=== PATIENT | male | born 1960 | race Hispanic/Latino ===

== ENCOUNTER 2017-05-23 11:23 | Outpatient (CLI) | payer OTHER ==
[2017-05-23 12:01] LABS: Bilirubin Negative (Negative); Blood, Urine Negative (Negative); Glucose, Urine (Dipstick) Negative (Negative); Ketone, Urine Negative (Negative); Nitrite Negative (Negative); Protein, Urine (Dipstick) Negative (Neg-Trace); Red Blood Cell (RBC) Count 4.95 mill/uL (4.70-6.10); White Blood Cell (WBC) Count 9.3 thou/uL (4.8-10.8)
[2017-05-23 12:03] LABS: Bacteria/HPF None Seen HPF (None Seen); Hyaline Casts/LPF 0-3 HYALINE CAST LPF (0-3 Hyaline); Squamous Epithelial 0-3 HPF (0-3); WBC/HPF 0-3 HPF (0-3)
[2017-05-23 12:09] LABS: PTT 32.6 SEC (22.9-36.1); Prothrombin Time 13.3 SEC (12.0-14.7)
[2017-05-23 12:22] LABS: Anion Gap 14 mmol/L (10-20); BUN (Urea Nitrogen) 7 mg/dL (8.4-25.7); Calc. Creatinine Clearance 0 mL/min (70-130); Calcium 9.7 mg/dL (7.8-10.44); Carbon Dioxide 26 mmol/L (22-29); Chloride 103 mmol/L (98-107); Estimated GFR-MDRD Greater than 90
== END 2017-05-23 11:24 | disposition home or self-care (01) ==
LOC: LABBT 11:23 → SJX 11:24
PROVIDERS: ATTEND Urology
DX: C67.9 Malignant neoplasm of bladder, unspecified (principal)
CPT/HCPCS: 80048; 81001; 85027; 85610; 85730; 87086; 88112; 88121; 93005; 93010

== ENCOUNTER 2017-06-01 07:23 | Day surgery (SDC) | payer OTHER ==
[2017-05-23 11:59] VITALS: BMI 25.7
[2017-06-01] MEDS ORDERED: Levofloxacin 500 mg/D5W 100 ml Premix Bag ONE (07:41)
[2017-06-01] MEDS ORDERED: Midazolam HCl 2 mg/2 ml Vial ONE (07:48)
[2017-06-01] MEDS ORDERED: Fentanyl 100 MCG/2 ML VIAL ONE (08:21)
--- NOTE | 2017-06-01 09:33 | OP ---
DATE OF PROCEDURE: 06/01/2017 SERVICE: Urology. SURGEON: Theron Green M.D. PREOPERATIVE DIAGNOSIS: Bladder cancer. POSTOPERATIVE DIAGNOSIS: Bladder cancer. PROCEDURE PERFORMED: Cystoscopy, bladder biopsy. INDICATIONS FOR PROCEDURE: Mr. Sutherland is a 56-year-old male who is well known to me for h is history of high grade T1 urothelial carcinoma. He has had multiple recurrences and is currently o n BCG therapy. He is on his 2nd induction cycle. On his last cystoscopy he had 2 suspicious areas w ithin his bladder diverticulum which worrisome for possible recurrence. His cytology was suspicious and his FISH analysis was positive. He is being brought in for bladder biopsies of these concerning lesions. All risks and benefits have been discussed and he has agreed to proceed forward. DESCRIPTION OF PROCEDURE: After identification of his armband and verification of consent, the patie nt was brought back to the operating room where he underwent general anesthesia with LMA. He was the n placed in dorsal lithotomy position and prepped and draped in usual sterile fashion. After appropr iate timeout, a lubricated 22 [place]ian rigid cystoscope was introduced per urethra into the bladder. A full cystoscopy was performed and there did not appear to be any lesions within the bladder itself o r near the bladder neck, prostatic urethra or urethra. The diverticulum contained some calcification s and two small appearing tumors with calcifications embedded in them. Both of these were plucked of f completely with cold cup biopsy forceps and a wide area fulgurated for hemostasis and destruction o f any potential cancer which may be present in the diverticulum. Upon completion, there did not appe ar to be any other suspicious areas that were concerning for urothelial carcinoma. Satisfied, the bl adder was emptied and the cystoscope withdrawn. The patient was then awakened and taken to PACU for recovery in stable condition. COMPLICATIONS: None. ESTIMATED BLOOD LOSS: Minimal. RETAINED TUBES AND DRAINS: None. SPECIMENS: Bladder biopsies from the bladder diverticulum. DISPOSITION: The patient will be discharged home and will follow up with me in approximately 1-2 wee ks for his postop check and to go over his pathology results.
[2017-06-01] MEDS ORDERED: Oxybutynin 5 MG TAB ONE (09:36)
[2017-06-01] MEDS ORDERED: Lidocaine 1% PF 5 ML VIAL ONE (17:37)
[2017-06-01] MEDS ORDERED: Dexamethasone 20 MG/5 ML VIAL ONE (17:37)
[2017-06-01] MEDS ORDERED: Ondansetron HCl/PF 4 MG/2 ML Vial ONE (17:37)
[2017-06-01] MEDS ORDERED: Propofol 200 MG/20 ML VIAL ONE (17:37)
== END 2017-06-01 11:27 | disposition home or self-care (01) ==
LOC: SDC 07:23
PROVIDERS: ATTEND Urology
PROC: 0T5B8ZZ Destruction of Bladder, Via Natural or Artificial Opening Endoscopic (ICD-10-PCS; principal; 2017-06-01)
PROC: 0TBB8ZX Excision of Bladder, Via Natural or Artificial Opening Endoscopic, Diagnostic (ICD-10-PCS; principal; 2017-06-01)
DX: N30.20 Other chronic cystitis without hematuria (principal); C67.9 Malignant neoplasm of bladder, unspecified; F17.210 Nicotine dependence, cigarettes, uncomplicated; Z98.890 Other specified postprocedural states; Z79.899 Other long term (current) drug therapy; Z86.19 Personal history of other infectious and parasitic diseases
CPT/HCPCS: 88305; J1100; J1956; J2001; J2250; J2405; J2704; J3010

== ENCOUNTER 2017-07-06 07:52 | Outpatient (CLI) | payer OTHER ==
--- NOTE | 2017-07-06 10:02 | CT ---
PRE AND POSTCONTRAST ENHANCED CT IMAGES ABDOMEN AND PELVIS: HISTORY: Patient with bladder diverticulum, bladder cancer, back pain. FINDINGS: Pre- and postcontrast-enhanced CT images of the abdomen and pelvis are obtained before and after admi nistration of IV contrast. The lung bases demonstrate a small calcified granuloma in the posterior aspect of the left lower lobe . No evidence of free intraperitoneal air is seen. The liver and spleen are unremarkable. Numerous calcified gallstones seen in the gallbladder. The p ancreas is unremarkable. Adrenal glands and kidneys are unremarkable. Again, a left-sided posterior approximately 4.2 x 3.2 cm left-sided bladder diverticulum is present unchanged since the previous e xam. No significant evidence of lymphadenopathy or mass lesion is seen. There is some thickness seen in the collateral wall. There is also a developing right-sided small bladder diverticulum diameter measuring approximately 14 mm. IMPRESSION: 1. Cholelithiasis. 2. Bilateral bladder diverticula larger on the left than on the right. 3. Some thickening and irregularity along the posterior aspect of the bladder possibly representing bladder mass or cystitis. POS: [facility]
== END 2017-07-06 07:53 | disposition home or self-care (01) ==
LOC: CT 07:52
PROVIDERS: ATTEND Urology
DX: C67.9 Malignant neoplasm of bladder, unspecified (principal); K80.20 Calculus of gallbladder without cholecystitis without obstruction; N32.3 Diverticulum of bladder
CPT/HCPCS: 74178

== ENCOUNTER 2017-08-04 09:12 | Outpatient (CLI) | payer OTHER ==
[2017-08-04 10:06] LABS: #Basophils 0.1 thou/uL (0.0-0.2); #Eosinphils 0.1 thou/uL (0.0-0.7); #Lymphocytes 3.1 thou/uL (1.20-3.40); #Monocytes 0.6 thou/uL (0.11-0.59); #Neutrophils 5.3 thou/uL (1.40-6.50); %Eosinophils 1.1 % (0.0-10.0); %Lymphocytes 33.5 % (21.0-51.0); %Monocytes 6.1 % (0.0-10.0); %Neutrophils 58.4 % (42.0-75.0); Mean Corpuscular HGB CONC 33.9 g/dL (32.0-36.0); Mean Corpuscular Hemoglobin 31.9 pg (27.0-31.0); Mean Corpuscular Volume 94.3 fl (80.0-94.0); Mean Platelet Volume 8.2 fL (7.4-10.4); Platelet Count 210 thou/uL (130-400); Red Blood Cell (RBC) Count 5.34 mill/uL (4.70-6.10); White Blood Cell (WBC) Count 9.1 thou/uL (4.8-10.8)
[2017-08-04 10:12] LABS: Prothrombin Time 13.2 SEC (12.0-14.7)
[2017-08-04 10:15] LABS: Bilirubin Negative (Negative); Blood, Urine Negative (Negative); Clarity CLEAR (Clear); Glucose, Urine (Dipstick) Negative (Negative); Leukocyte Moderate (Negative); Nitrite Negative (Negative); Protein, Urine (Dipstick) Negative (Neg-Trace); Specific Gravity, Urine 1.009 (1.002-1.036); pH, Urine 6.5 (5.0-9.0)
[2017-08-04 10:18] LABS: Bacteria/HPF None Seen HPF (None Seen); Hyaline Casts/LPF 0-3 HYALINE CAST LPF (0-3 Hyaline); Pathc Cast-AUWi Flag 0.27 (0-2.49); Squamous Epithelial 0-3 HPF (0-3); WBC/HPF 21-50 HPF (0-3)
[2017-08-04 10:26] LABS: Anion Gap 11 mmol/L (10-20); BUN (Urea Nitrogen) 6 mg/dL (8.4-25.7); Calc. Creatinine Clearance 0 mL/min (70-130); Calcium 9.6 mg/dL (7.8-10.44); Carbon Dioxide 24 mmol/L (22-29); Chloride 105 mmol/L (98-107); Estimated GFR-MDRD Greater than 90; Glucose 117 mg/dL (70-105); Potassium 4.3 mmol/L (3.5-5.1); Sodium 136 mmol/L (136-145)
--- NOTE | 2017-08-04 11:31 | RAD ---
2 VIEW CHEST: Date: 08/04/17 COMPARISON: 06/28/16. CLINICAL HISTORY: Preoperative evaluation. FINDINGS: Stable rounded hyperdensity of the central left lung base indicates granulomatous calcification. Lung s are otherwise clear. Cardiac silhouette is stable. IMPRESSION: 1. No focal consolidation. 2. Stable granulomatous calcification. POS: [facility]
--- NOTE | 2017-08-06 09:20 | EKG ---
Test Reason : Blood Pressure : / mmHG Vent. Rate : 077 BPM Atrial Rate : 077 BPM P-R Int : 136 ms QRS Dur : 074 ms QT Int : 380 ms P-R-T Axes : 032 065 041 degrees QTc Int : 430 ms Normal sinus rhythm Normal ECG When compared with ECG of 23-MAY-2017 11:26, No significant change was found Confirmed by FIONA MA ([id number]) on 08/06/2017 9:20:04 AM Referred By: RACHEAL Confirmed By:FIONA MA
== END 2017-08-04 09:13 | disposition home or self-care (01) ==
LOC: LABBT 09:12
PROVIDERS: ATTEND Orthopaedic Surgery Hand Surgery
DX: Z01.818 Encounter for other preprocedural examination (principal); M19.131 Post-traumatic osteoarthritis, right wrist; M79.2 Neuralgia and neuritis, unspecified
CPT/HCPCS: 71046; 80048; 81001; 85025; 85610; 93005; 93010

== ENCOUNTER 2017-08-08 06:05 | Day surgery (SDC) | payer OTHER ==
[2017-08-04 09:30] VITALS: BMI 25.7
[2017-08-08] MEDS ORDERED: Sodium Chloride 0.9% 10 ML ONE (06:29)
[2017-08-08] MEDS ORDERED: Thrombin 5000 UNITS/5 ML VIAL ONE (06:29)
[2017-08-08] MEDS ORDERED: Bupivacaine 0.5% 10 ML VIAL ONE ×2 (06:29→07:42)
[2017-08-08] MEDS ORDERED: Bacitracin Zinc Ointment 30 gm TUBE ONE (06:29)
[2017-08-08] MEDS ORDERED: CEFAZOLIN/Water 2 GM/20 ML SYRINGE ONE (06:39)
[2017-08-08] MEDS ORDERED: Midazolam HCl 2 mg/2 ml Vial ONE (06:50)
[2017-08-08] MEDS ORDERED: Fentanyl 100 MCG/2 ML VIAL ONE ×2 (06:50→07:14)
[2017-08-08] MEDS ORDERED: Promethazine HCl 25 MG/ML VIAL IM PRN (07:13)
[2017-08-08] MEDS ORDERED: Ropivacaine 0.2% 550 ML 550 ML NERVE BLCK SCH (07:13)
[2017-08-08] MEDS ORDERED: Zolpidem Tartrate 5 MG TAB PO PRN (07:13)
[2017-08-08] MEDS ORDERED: Ketorolac Tromethamine 30 MG/ML VIAL IVP PRN (07:13)
[2017-08-08] MEDS ORDERED: HYDROcodone/Acetaminophen 10/325 mg Tablet PO PRN ×2 (07:13)
[2017-08-08] MEDS ORDERED: traMADol HCl 50 MG TAB PO PRN ×2 (07:13)
[2017-08-08] MEDS ORDERED: Ondansetron HCl/PF 4 MG/2 ML Vial IVP PRN (07:13)
[2017-08-08] MEDS ORDERED: Fentanyl 100 MCG/2 ML VIAL IV PRN (07:14)
[2017-08-08] MEDS ORDERED: HYDROmorphone 0.5 MG/0.5 ML SYRINGE ONE (07:14)
[2017-08-08] MEDS ORDERED: Gentamicin 80 MG/2 ML VIAL ONE (10:29)
[2017-08-08] MEDS ORDERED: Propofol 200 MG/20 ML VIAL ONE (14:39)
[2017-08-08] MEDS ORDERED: Lidocaine 1% PF 5 ML VIAL ONE (14:39)
[2017-08-08] MEDS ORDERED: Ketorolac Tromethamine 30 MG/ML VIAL ONE (14:39)
[2017-08-08] MEDS ORDERED: Ondansetron HCl/PF 4 MG/2 ML Vial ONE (14:39)
[2017-08-08] MEDS ORDERED: Dexamethasone 20 MG/5 ML VIAL ONE (14:39)
[2017-08-08] MEDS ORDERED: Bupivacaine/Epinephrine 0.25% 30 ML VIAL ONE (14:56)
--- NOTE | 2017-08-09 11:17 | OP ---
PREOPERATIVE DIAGNOSIS: Right wrist SLAC stage 3 with marked changes at the capitolunate joint with lunate to the radius/radial lunate fossa was excellent with no chondral injury. Also, previous ST-T fusion. PROCEDURES PERFORMED: 1. Scaphoid excision maintained in ST-T fusion at the distal 3 mm of the scaphoid. 2. Capitolunate hamate (capitolunate hamate triquetral ) arthrodesis with major bone grafting. 3. Bone grafting for fusion of the wrist. 4. RENE supervision. 5. Tenosynovectomy extensive. COMPLICATIONS: None. TOURNIQUET TIME: 120 minutes. ESTIMATED BLOOD LOSS: Approximately 150 mL. INDICATIONS: Patient with the SLAC wrist as described above even after ST-T previous fusion. DESCRIPTION OF PROCEDURE: After successful general endotracheal anesthesia, the limb was prepped and draped. Timeout was accomplished appropriately. We then outlined a zigzag incision beginning off o f the distal radial side and proximal central side of his old scaphotrapezial trapezoid fusion. We t cristina carried through the skin and subcutaneous tissue, dissected down and noticed some of the radial n erve branches were truncated as the scar preserved. All that was still not truncated on the radial s francisca and found the superficial ulnar nerve and protected it. We did a V-shaped capsulotomy based ulna rly, following the scaphoid and then slowly removed it realizing that it would be truncated because o f the need to preserve the scaphoid trapezoid fusion. We then, noticed that the scaphoradial, scapho capitate and capitolunate joint all had at least 6% or more arthrosis, but the radiolunate fossa was excellent. For this reason, 4-corner arthrodesis was indicated. We then used a combination of a bur r and small curettes to decorticate the capitate at the lunate joint, the lunate of the capitate andrea culation, the captiohamate, hamate, and triquetrum at their articulation is maintained and all radioc arpal surfaces between the triquetrum and lunate and the wrist. We then took the wrist, the lunate a s much palmar flexion as we could, still; however, it was approximately 10 degrees of palmar flexion we finished in reduction. This was then bone grafted, held with K-wires and then we in situ fused th e four corners with a combination of a minimal amount of bone from the scaphoid and marked amount fro m cancellous chip donors. Once this was well packed and we felt that we had achieved appropriate max imal position to include sagittal plane and frontal plane, we then placed two 4.0 screws across each of the articulation of the fusion first capitolunate, second hamate triquetrum and then from a separa te ulnar based incision, preserving the superficial ulnar nerve going through the sheath of the exten sor carpal ulnaris, we then placed 2 screws, first in the triquetral lunate and the second one in the hamate to capitate. All screws had excellent purchase and from the sagittal plane without violation of the anatomical planes, and then we packed the remainder surface with further bone graft. Release d the tourniquet, and began the capsule closed with #2 Ethibond using suture in interrupted fig [id number] pattern. We had excellent closure to the radius itself. Also to the scaphoid corner wh ere the bone was found. Then, we used a 3-0 Monocryl to repair the retinaculum preserving the orientation between the third a nd fourth dorsal compartment components. Subcutaneous tissue was closed with running 3-0 Monocryl fo r the deep dermal and the skin with 4-0 nylon. We closed the separate incision first by closing the ECU sheath with 3-0 Monocryl and then 4-0 nylon for the epidermis. The patient had a block, so a bul ky dressing was applied, but only minimum of 20 mL 0.5% Marcaine. Incisional injection, no epinephri ne. Sugar tong splint was applied. The patient left the operating room without evidence of anesthet ic complication.
--- NOTE | 2017-08-10 08:52 | RAD ---
RIGHT WRIST 2 VIEWS: Date: 08/08/17 HISTORY: Open reduction and internal fixation right wrist. FINDINGS/IMPRESSION: Two spot fluoroscopic intraoperative images of the right wrist demonstrate metallic hardware and fusi on of the carpal bones. POS: [facility]
== END 2017-08-08 13:48 | disposition home or self-care (01) ==
LOC: SDC 06:05
PROVIDERS: ATTEND Orthopaedic Surgery Hand Surgery
PROC: [UNRECOGNIZED PROCEDURE] (principal; 2017-08-08)
PROC: 0PTM0ZZ Resection of Right Carpal, Open Approach (ICD-10-PCS; principal; 2017-08-08)
DX: M19.131 Post-traumatic osteoarthritis, right wrist (principal); M79.2 Neuralgia and neuritis, unspecified; F17.210 Nicotine dependence, cigarettes, uncomplicated; F32.9 Major depressive disorder, single episode, unspecified; F10.10 Alcohol abuse, uncomplicated; Z98.890 Other specified postprocedural states
CPT/HCPCS: 76001; A4216; A4306; C1713; J1100; J1170; J1580; J1885; J2001; J2250; J2405; J2704; J2795; J3010; J3490

== ENCOUNTER 2018-06-12 13:22 | Outpatient (CLI) | payer OTHER ==
[2018-06-12 13:57] LABS: Hemoglobin 15.5 g/dL (14.0-18.0); Mean Corpuscular HGB CONC 33.9 g/dL (32.0-36.0); Mean Corpuscular Hemoglobin 31.2 pg (27.0-31.0); Mean Corpuscular Volume 92.1 fL (78.0-98.0); Mean Platelet Volume 8.1 fL (7.4-10.4); Platelet Count 249 thou/uL (130-400); RBC Distribution Width 11.7 % (11.5-14.5); Red Blood Cell (RBC) Count 4.96 mill/uL (4.70-6.10); White Blood Cell (WBC) Count 8.3 thou/uL (4.8-10.8)
[2018-06-12 14:05] LABS: PTT 34.3 SEC (22.9-36.1); Prothrombin Time 13.2 SEC (12.0-14.7)
[2018-06-12 14:07] LABS: Bilirubin Small (Negative); Blood, Urine Negative (Negative); Clarity CLEAR (Clear); Glucose, Urine (Dipstick) Negative (Negative); Leukocyte Small (Negative); Nitrite Negative (Negative); Protein, Urine (Dipstick) Trace mg/dL (Neg-Trace); Specific Gravity, Urine 1.022 (1.002-1.036); pH, Urine 6.5 (5.0-9.0)
[2018-06-12 14:18] LABS: Anion Gap 14 mmol/L (10-20); BUN (Urea Nitrogen) 13 mg/dL (8.4-25.7); Calc. Creatinine Clearance 0 mL/min (70-130); Calcium 9.6 mg/dL (7.8-10.44); Carbon Dioxide 23 mmol/L (22-29); Chloride 106 mmol/L (98-107); Estimated GFR-MDRD 76; Glucose 99 mg/dL (70-105); Potassium 4.6 mmol/L (3.5-5.1); Sodium 138 mmol/L (136-145)
[2018-06-12 14:59] LABS: Bacteria/HPF Rare-Few HPF (None Seen); RBC/HPF 0-3 HPF (0-3); Squamous Epithelial 0-3 HPF (0-3); WBC/HPF 0-3 HPF (0-3)
--- NOTE | 2018-06-12 17:57 | EKG ---
Test Reason : Blood Pressure : / mmHG Vent. Rate : 080 BPM Atrial Rate : 080 BPM P-R Int : 146 ms QRS Dur : 078 ms QT Int : 352 ms P-R-T Axes : 055 069 052 degrees QTc Int : 405 ms Normal sinus rhythm Normal ECG When compared with ECG of 04-AUG-2017 09:49, No significant change was found Confirmed by FIONA MA ([id number]) on 06/12/2018 5:56:26 PM Referred By: ART Confirmed By:FIONA MA
== END 2018-06-12 13:23 | disposition home or self-care (01) ==
LOC: LABBT 13:22
PROVIDERS: ATTEND Urology
DX: Z01.818 Encounter for other preprocedural examination (principal); C68.9 Malignant neoplasm of urinary organ, unspecified; N32.3 Diverticulum of bladder; C67.9 Malignant neoplasm of bladder, unspecified
CPT/HCPCS: 80048; 81001; 85027; 85610; 85730; 87086; 93005; 93010

== ENCOUNTER 2018-06-14 07:00 | Day surgery (SDC) | payer OTHER ==
[2018-06-12 13:43] VITALS: BMI 25.1
[2018-06-14] MEDS ORDERED: Levofloxacin 500 mg/D5W 100 ml Premix Bag ONE (08:19)
[2018-06-14] MEDS ORDERED: Fentanyl 100 MCG/2 ML VIAL ONE (09:00)
--- NOTE | 2018-06-14 12:06 | OP ---
DATE OF PROCEDURE: 06/14/2018 SERVICE: Urology. PREOPERATIVE DIAGNOSIS: Bladder cancer. POSTOPERATIVE DIAGNOSIS: Bladder cancer. PROCEDURE PERFORMED: Cystoscopy with bladder biopsy. INDICATION FOR PROCEDURE: Mr. Sutherland is a 57-year-old male with a long history of high-grade T1 urothelial carcinoma. He has undergone two courses of BCG, but continues to recur. I have consistently encouraged him to pursue radical cystectomy, but he has been reluctant and has not wanted to pursue this. We have also discussed bladder sparing protocol with chemo and radiation. Unfortunately, he has a new tumor now and we are bringing him in to remove this as we continue his definitive treatment for bladder cancer. DESCRIPTION OF PROCEDURE: After identification of arm band and verification of consent, the patient was brought back to the operating room, where he underwent general anesthesia with an LMA. He was then placed in dorsal lithotomy position and prepped and draped in usual sterile fashion. After appropriate time-out, a lubricated 22-[place] Islander rigid cystoscope was introduced per urethra into the bladder. A full cystoscopy was performed, and there was no additional tumors other than the area noted within the bladder diverticulum on the left. There were some red areas next to it with calcifications, which I felt I would biopsy as well and one red patch just medial to the diverticulum inside of the bladder, which I also felt I should biopsy. The biopsies were first taken of the medial aspect to the diverticulum and this area fulgurated. We then went into the diverticulum and removed the bladder tumor via multiple biopsies out of concern for possible perforation since the bladder diverticulum wall is very thin. I did not want to risk a TURBT in this location. Therefore, cold cup biopsies were used repeatedly until the entire tumor was removed, flushed with the urothelium. I was not able to get deeper biopsy bites and there is no muscularis within the diverticulum, so muscle invasion cannot be demonstrated this location. Once all the stone was removed on the adjacent lesion as well and that area also biopsied, the entire area in conglomeration in the diverticulum was fulgurated extensively with the coag current on the Bugbee electrode. Upon completion, all the tumor specimens were removed and sent off for routine pathologic evaluation. There were no additional tumor fragments noted. No other tumors anywhere in the bladder and all cauterized sites were hemostatic without any bleeding. The bladder was emptied and cystoscope removed. The patient was then awakened, and taken to PACU for recovery in stable condition. COMPLICATIONS: None. BLOOD LOSS: Minimal. RETAINED TUBES AND DRAINS: None. SPECIMENS: Bladder biopsies from within the diverticulum and medial to the diverticulum. DISPOSITION: The patient will be discharged home and follow up with me in approximately 2 to 3 weeks for biopsy results and discussion of future plans. Job ID: [id number]
[2018-06-14] MEDS ORDERED: Lidocaine 1% PF 5 ML VIAL ONE (16:58)
[2018-06-14] MEDS ORDERED: Ondansetron PF 4 MG/2 ML Vial ONE (16:58)
[2018-06-14] MEDS ORDERED: PROPOFOL 200 MG/20 ML VIAL ONE (16:58)
[2018-06-14] MEDS ORDERED: Dexamethasone 20 MG/5 ML VIAL ONE (16:58)
== END 2018-06-14 12:40 | disposition home or self-care (01) ==
LOC: SDC 07:00
PROVIDERS: ATTEND Urology
PROC: 0TBB8ZX Excision of Bladder, Via Natural or Artificial Opening Endoscopic, Diagnostic (ICD-10-PCS; principal; 2018-06-14)
DX: C67.9 Malignant neoplasm of bladder, unspecified (principal); N30.20 Other chronic cystitis without hematuria; N32.3 Diverticulum of bladder; F32.9 Major depressive disorder, single episode, unspecified; F17.210 Nicotine dependence, cigarettes, uncomplicated; Z98.890 Other specified postprocedural states
CPT/HCPCS: 88305; C1769; J1100; J1956; J2001; J2405; J2704; J3010

== ENCOUNTER 2018-07-20 08:06 | Outpatient (CLI) | payer OTHER ==
--- NOTE | 2018-07-20 10:33 | CT ---
CT THORAX NONCONTRAST LOW DOSE LUNG CANCER SCREENING CT: DATE: 07-20-18 HISTORY: 57-year-old male with 35 year history of smoking. FINDINGS: There is a prominent calcified pulmonary granuloma at the posterior base of the left lower lobe. Othe rwise, the lungs are clear, with no suspicious pulmonary nodules, bronchiectasis, ground glass lesion s, airspace opacities, consolidation, or pulmonary edema. There is no pleural effusion or pneumothora x. No thoracic aortic aneurysm. Trachea and major bronchi are patent and clear. No cardiomegaly or pe ricardial effusion. No mediastinal lymphadenopathy. IMPRESSION: 1. Lung RADS category 1 (negative, less than 1% chance of malignancy). 2. Recommend continued annual low dose screening CT. YOLIE Watkins POS: [facility]
== END 2018-07-20 08:07 | disposition home or self-care (01) ==
LOC: CT 08:06
PROVIDERS: ATTEND Internal Medicine Hematology & Oncology
DX: F17.210 Nicotine dependence, cigarettes, uncomplicated (principal)
CPT/HCPCS: G0297

== ENCOUNTER 2019-05-17 19:44 | Inpatient (IN) | payer OTHER ==
[~2019-05-17 19:44] MED LIST: Iopamidol-370 76% 500 ML 1 ML ONE
--- NOTE | 2019-05-17 20:19 | RAD ---
XR Chest Pa Lat STANDARD History: Chest pain Comparison: Radiograph 2019 Findings: Lungs are clear. No pneumothorax. No effusion. Calcified granuloma left lung base. Impression: No acute intrathoracic abnormality.
[2019-05-17 20:32] LABS: #Basophils 0.1 thou/uL (0.0-0.2); #Eosinphils 0.2 thou/uL (0.0-0.7); #Lymphocytes 4.1 thou/uL (1.20-3.40); #Monocytes 0.6 thou/uL (0.11-0.59); #Neutrophils 4.6 thou/uL (1.40-6.50); %Basophils 0.8 % (0.0-1.0); %Eosinophils 1.7 % (0.0-10.0); %Lymphocytes 43.3 % (21.0-51.0); %Monocytes 5.8 % (0.0-10.0); %Neutrophils 48.3 % (42.0-75.0); Hemoglobin 15.7 g/dL (14.0-18.0); Mean Corpuscular HGB CONC 33.9 g/dL (32.0-36.0); Mean Corpuscular Hemoglobin 31.2 pg (27.0-31.0); Mean Corpuscular Volume 92.1 fL (78.0-98.0); Mean Platelet Volume 7.7 fL (7.4-10.4); Platelet Count 261 thou/uL (130-400); RBC Distribution Width 11.8 % (11.5-14.5); Red Blood Cell (RBC) Count 5.04 mill/uL (4.70-6.10); White Blood Cell (WBC) Count 9.5 thou/uL (4.8-10.8)
[2019-05-17 20:52] LABS: ALT (SGPT) 49 U/L (8-55); AST (SGOT) 47 U/L (5-34); Albumin 4.4 g/dL (3.5-5.0); Alkaline Phosphatase 99 U/L (40-110); Anion Gap 11 mmol/L (10-20); BUN (Urea Nitrogen) 10 mg/dL (8.4-25.7); Bilirubin, Total 0.4 mg/dL (0.2-1.2); CK (CPK) 95 U/L (30-200); Calc. Creatinine Clearance 0 mL/min (70-130); Calcium 9.6 mg/dL (7.8-10.44); Carbon Dioxide 30 mmol/L (22-29); Chloride 105 mmol/L (98-107); Estimated GFR-MDRD Greater than 90; Globulin 3.1 g/dL (2.4-3.5); Glucose 128 mg/dL (70-105); Potassium 3.9 mmol/L (3.5-5.1); Protein, Total 7.5 g/dL (6.0-8.3); Sodium 142 mmol/L (136-145)
[2019-05-17] MEDS ORDERED: Aspirin Chewable 81 MG TAB ONE (21:57)
--- NOTE | 2019-05-17 23:02 | CT ---
CTA Angio Chest W WO Con History: Chest pain Comparison: Chest radiograph same day Findings: CT angiogram chest performed after the intravenous administration of contrast. 3-D renderin g provided. No pulmonary emboli. No pericardial effusion. Calcified hilar lymph nodes. Calcified left lower lobe granuloma. No pneumothorax. No effusion. No consolidation. The ascending aorta measures up to 3 9 cm. No thoracic spine compression fracture. Moderate degenerative changes. Upper abdomen is unremarkable. No acute displaced rib fracture. Impression: No pulmonary embolism or acute intrathoracic abnormality.
[2019-05-18 00:10] LABS: Troponin I Less than 0.010 ng/mL (< 0.028)
[2019-05-18] MEDS ORDERED: Acetaminophen 325 MG TAB PO PRN (01:05)
[2019-05-18] MEDS ORDERED: Nitroglycerin 0.4 MG TAB (25 Tab Bottle) PO PRN (01:05)
[2019-05-18] MEDS ORDERED: Ondansetron PF 4 MG/2 ML Vial IVP PRN (01:05)
[2019-05-18] MEDS ORDERED: HYDROcodone/Acetaminophen 5/325 mg Tablet PO PRN (01:05)
[2019-05-18 01:13] VITALS: BMI 24.7
[2019-05-18] MEDS ORDERED: Pantoprazole 40 MG VIAL IVP SCH (01:30)
[2019-05-18] MEDS ORDERED: Sodium Chloride 0.9% 1,000 ML IV SCH (01:30)
[2019-05-18] MEDS ORDERED: Famotidine 20 MG TAB PO SCH (01:30)
[2019-05-18] MEDS: Nicotine 21 MG PATCH TD SCH ×2 (01:33→19:16)
[2019-05-18 02:44] LABS: Troponin I Less than 0.010 ng/mL (< 0.028)
--- NOTE | 2019-05-18 03:03 | HP ---
PRESENTING COMPLAINT: Substernal chest pain. HISTORY OF PRESENT ILLNESS: Mr. Ena Ramos is a 58-year-old male with past medical history of bladder cancer, treated with ablation two years ago on a scheduled followup cystoscopy; history of GERD, who takes his Protonix as needed and developed substernal chest pain while walking on the roof with a friend today. Chest pain, he rates the chest pain as sharp and nonradiating, peaked at 4/10. Pain initially improved, after patient had actually dinner, pain became persistent, hence presented to ED. Pain did not change with aspirin given. He describes pain at about 2 to 3/10. He denies any shortness of breath or dizziness. He admits to transient palpitation two days ago while watching TV. He denies any history of exertional chest pain or shortness of breath. There is no family history of any coronary artery disease. PAST MEDICAL HISTORY: Significant for bladder cancer and GERD. SOCIAL HISTORY: Patient admits to one pack per day tobacco use. Occasional alcohol use. No history of illicit drug use. FAMILY HISTORY: No history of coronary artery disease or CVA. ALLERGIES: NO KNOWN DRUG ALLERGIES. HOME MEDICATIONS: Include: 1. Hydrocodone as needed daily for back pain. 2. Protonix, which he takes once in a while for intermittent gastric burning. REVIEW OF SYSTEMS: All systems review x14 were negative. PHYSICAL EXAMINATION: VITAL SIGNS: Current vitals; blood pressure of 123/61; pulse of 63; O2 saturation is 95 on room air; and temp, afebrile. GENERAL: Average built, middle-aged male, not in any distress. HEENT: Head is atraumatic, normocephalic. Pupils equal, reactive to light. Extraocular motor movement intact. NECK: No JVD. No carotid bruit. RESPIRATORY: Good air entry bilaterally. No crepitation. CARDIOVASCULAR: S1, S2. No reproducible chest wall tenderness, but notable tenderness in the epigastric substernal margin. ABDOMEN: Tenderness as noted in the epigastric margin. No guarding. Bowel sounds positive in all four quadrants. EXTREMITIES: No calf tenderness. No pedal edema. NEUROLOGIC: Patient is alert, oriented. Cranial nerves 2-12 grossly intact. LABORATORY DATA: EKG showed normal sinus rhythm. No ST-segment changes. WBC 9.5, platelet 261, and hemoglobin 15. Sodium 142, potassium 3.9, bicarb 30, BUN 10, and creatinine 0.8. AST and alkaline phosphatase normal. Troponin 0.016. IMAGING: Chest x-ray shows no acute intrathoracic abnormality. IMPRESSION: 1. Atypical chest pain. 2. Presumed gastritis. 3. Chronic tobacco use. PLAN: We will admit patient to observation on telemetry unit. We do serial set of cardiac enzymes. We will obtain CTA to rule out possibility of occult pulmonary embolism. We will give IV Protonix 40 mg x1, start now and start patient on Pepcid b.i.d. Need for adherence with Protonix discussed. If the chest pain seems most consistent with gastritis, may follow to rule out cardiac enzymes. We will include nicotine patch for tobacco use. Tobacco cessation advised. Patient is a full code. We will do subcutaneous Lovenox for DVT prophylaxis. Total time spent evaluation of patient and discussion greater than 60 minutes. Job ID: [id number]
[2019-05-18 06:21] LABS: Band 1 % (5-11); Eosinophils 2 % (0-10); Hemoglobin 14.3 g/dL (14.0-18.0); Lymphocytes 42 % (21-51); MDiff Complete? YES; Mean Corpuscular HGB CONC 33.8 g/dL (32.0-36.0); Mean Corpuscular Hemoglobin 31.2 pg (27.0-31.0); Mean Corpuscular Volume 92.4 fL (78.0-98.0); Mean Platelet Volume 8.2 fL (7.4-10.4); Monocytes 11 % (0-10); Neutrophil 41 % (42-75); Platelet Count 240 thou/uL (130-400); RBC Distribution Width 11.6 % (11.5-14.5); Reactive Lymphocytes 3 % (0-10); Red Blood Cell (RBC) Count 4.58 mill/uL (4.70-6.10); White Blood Cell (WBC) Count 8.8 thou/uL (4.8-10.8)
[2019-05-18 06:25] LABS: Anion Gap 9 mmol/L (10-20); BUN (Urea Nitrogen) 9 mg/dL (8.4-25.7); Calc. Creatinine Clearance 119 mL/min (70-130); Calcium 8.9 mg/dL (7.8-10.44); Carbon Dioxide 27 mmol/L (22-29); Cardiac Risk 2.4 (Less than 4.5); Chloride 109 mmol/L (98-107); Cholesterol 73 mg/dl (< 200 Desired); Estimated GFR-MDRD Greater than 90; Glucose 112 mg/dL (70-105); HDL Cholesterol 30 mg/dL (>60 Neg Risk); LDL Cholesterol, Calculated 12 mg/dL; Sodium 141 mmol/L (136-145); Triglycerides 156 mg/dL (Less than 150)
[2019-05-18] MEDS: Famotidine 20 MG TAB PO SCH ×2 (08:32→19:15)
[2019-05-18] MEDS: Aspirin 325 mg Enteric Coated Tablet PO SCH (08:32)
[2019-05-18] MEDS: Enoxaparin Sodium 40 MG/0.4 ML SYRINGE SC SCH (08:32)
[2019-05-18] MEDS ORDERED: FLU VACC QS2019-20(6MOS UP)/PF 60 MCG/0.5 ML SYRINGE IM ONE (09:00)
--- NOTE | 2019-05-18 19:29 | PDOC.HOSPP ---
- Subjective Encounter Date: 05/18/19 Encounter Time: 19:00 Subjective: Patient still reporting burning chest pain, at rest and on exertion. Occurred yesterday initially after activity. States his chest pain attacks last few minutes then go away on its own. Denies shortness of breath, clamminess or change in skin color with this. FEels diff than GERD. Unable to state whether protonix helps. Reports history of bleeding ulcer few years ago, was not rechecked. Stress test done today and pending. - Objective Vital Signs & Weight: Vital Signs (12 hours) Temp Pulse Resp BP BP Pulse Ox 05/18/19 16:27 97.9 F 65 16 126/78 99 05/18/19 11:26 97.8 F 71 16 132/81 97 05/18/19 08:26 98.3 F 67 16 131/82 96 Weight Weight 177 lb 4.8 oz I&O: 05/17/19 05/18/19 05/19/19 06:59 06:59 06:59 Intake Total 479 615 Balance 479 615 Result Diagrams: 05/18/19 05:33 05/18/19 05:33 Additional Labs: Accuchecks 05/18/19 10:44 POC Glucose 123 H Hospitalist ROS - Review of Systems Constitutional: denies: fever, chills Cardiovascular: reports: chest pain. denies: palpitations, orthopnea - Medication Medications: Active Medications Generic Name Dose Route Start Last Admin Trade Name Freq PRN Reason Stop Dose Admin Aspirin 325 mg 05/18/19 09:00 05/18/19 08:32 Ecotrin PO 325 mg DAILY PATRICK Administration Enoxaparin Sodium 40 mg 05/18/19 09:00 05/18/19 08:32 Lovenox SC 40 mg 0900 PATRICK Administration Famotidine 20 mg 05/18/19 09:00 05/18/19 19:15 Pepcid PO 20 mg BID PATRICK Administration Nicotine 21 mg 05/18/19 02:00 05/18/19 19:16 Nicoderm Patch TD 21 mg Q24HR PATRICK Administration Sodium Chloride 10 ml 05/18/19 01:42 05/18/19 19:15 Flush - Normal Saline IVF 10 ml PRN PRN Administration Saline Flush - Exam General Appearance: NAD, awake alert Eye: PERRL, anicteric sclera ENT: normocephalic atraumatic, no oropharyngeal lesions Neck: supple, symmetric, no JVD, no thyromegaly Heart: RRR, no murmur, no gallops, no rubs Respiratory: CTAB, no wheezes, no rales, no ronchi Gastrointestinal: soft, non-tender, non-distended, normal bowel sounds Extremities: no cyanosis, no clubbing, no edema Skin: normal turgor, no lesions, no rashes Neurological: cranial nerve grossly intact, normal sensation to touch, no focal deficits, no new deficit Musculoskeletal: normal tone, normal strength Hosp A/P - Plan Stress test: prelim pending nuclear negative 45 year old man with chest pain that started after helping his friend with outdoor activites. Currently occurs at rest and on exertion, resolves after few minutes Chest pain - possibly gastritis from ulcer versus CAD - continue IV protonix - stress test results pending. If negative, will consider GI consult tomorrow for consideration of EGD Tobacco abuse - nicotine patch Hepatitis C - not getting treatment until he is off buproprion Depression - continue buproprion
[2019-05-19 05:23] LABS: Hemoglobin 15.4 g/dL (14.0-18.0); Mean Corpuscular HGB CONC 33.7 g/dL (32.0-36.0); Mean Corpuscular Hemoglobin 31.4 pg (27.0-31.0); Mean Corpuscular Volume 93.3 fL (78.0-98.0); Mean Platelet Volume 8.1 fL (7.4-10.4); Platelet Count 233 thou/uL (130-400); RBC Distribution Width 11.7 % (11.5-14.5); Red Blood Cell (RBC) Count 4.91 mill/uL (4.70-6.10); White Blood Cell (WBC) Count 9.7 thou/uL (4.8-10.8)
[2019-05-19 05:41] LABS: Anion Gap 10 mmol/L (10-20); BUN (Urea Nitrogen) 7 mg/dL (8.4-25.7); Calc. Creatinine Clearance 114 mL/min (70-130); Calcium 9.4 mg/dL (7.8-10.44); Carbon Dioxide 27 mmol/L (22-29); Chloride 106 mmol/L (98-107); Estimated GFR-MDRD Greater than 90; Glucose 112 mg/dL (70-105); Potassium 4.4 mmol/L (3.5-5.1); Sodium 139 mmol/L (136-145)
[2019-05-19 07:59] VITALS: BP 120/75; TEMP 97.6
[2019-05-19] MEDS: Enoxaparin Sodium 40 MG/0.4 ML SYRINGE SC SCH (08:55)
[2019-05-19] MEDS: Famotidine 20 MG TAB PO SCH (08:55)
[2019-05-19] MEDS: Aspirin 325 mg Enteric Coated Tablet PO SCH (08:55)
--- NOTE | 2019-05-20 14:23 | DIS ---
DATE OF ADMISSION: 05/18/2019 DATE OF DISCHARGE: 05/19/2019 DISCHARGE DIAGNOSIS: Chest pain, most likely secondary to gastritis versus gastroesophageal reflux disease, history of peptic ulcer in the past. SECONDARY DISCHARGE DIAGNOSES: Tobacco abuse, hepatitis C, and depression. CONSULTATIONS: None. PROCEDURES: Exercise stress test/nuclear stress test. BRIEF HISTORY OF PRESENT ILLNESS: This is a 58-year-old male with a past medical history of hepatitis C, bladder cancer, GERD, who presented to the emergency room with chest pain while the patient was walking on the roof with a friend. The patient states that after he ate dinner, his pain became persistent, therefore, he presented to the ED. He had no relief with aspirin. The patient was admitted to observation on the telemetry room unit to rule out ACS. The patient had a chest x-ray in the ER, which showed no acute abnormality and had a CTA of his chest, which showed no PE. Chest pain, most likely secondary to GERD/gastritis: The patient underwent serial troponin monitoring. His troponins were negative x3. His EKG showed normal sinus rhythm with no ST-segment changes. The patient's labs were unremarkable except for a slightly elevated triglyceride of 156. The patient was started on aspirin 325 mg daily and was also started on famotidine 20 mg p.o. b.i.d. He had a nuclear stress test was ordered which showed no evidence of ischemia, but a slightly reduced EF of 51%. On 05/19, the patient states that his chest pain had resolved and he reported no episodes of chest pain on exertion. He does have a history of a bleeding ulcer in the past a few years ago, therefore aspirin was discontinued on discharge. He has not had a follow up endoscopy to assess resolution of ulcer. He was discharged on protonix 40 mg daily, famotidine daily prn and tums over the counter. He should follow up with his GI doctor as an outpatient to consider a repeat endoscopy to see if his ulcer is still present or has resolved. I also advised that the patient completely abstain from alcohol and stop smoking, he does report drinking a significant amount. He states he will have his friend over when he gets the urge to drink. He will follow up with PCP in a week. Hepatitis C: The patient has a GI doctor that he follows up with an outpatient. Currently, he is not on treatment. Depression: Continue bupropion. Tobacco abuse: The patient does not want a nicotine patch due to cost. He did not tolerate nicotine gum due to dental problems. History of bladder cancer: The patient is following up as an outpatient. DISCHARGE PHYSICAL EXAMINATION: VITAL SIGNS: Temperature 97.6, heart rate 67, respiratory rate 14, O2 saturation 99% on room air, and blood pressure 120/75. GENERAL: The patient is alert, awake, and oriented x3. CVS: Regular rate and rhythm with no murmurs, rubs, or gallops. LUNGS: Clear to auscultation bilaterally. ABDOMEN: Positive bowel sounds, soft, nontender, and nondistended. EXTREMITIES: No edema. PERTINENT LABORATORY DATA: CBC, 05/19: Normal with hemoglobin of 15.4. BMP, 05/19: Normal except for slightly elevated blood sugar of 112. Troponin I: Less than 0.01 x3. LFTs: AST slightly elevated at 47, ALT 49, alkaline phosphatase 99. The patient's AST is chronically elevated. He does have a history of hepatitis C. Lipid panel: Triglyceride is 156, cholesterol 73, LDL 12, and HDL 30. PERTINENT IMAGING STUDIES: CTA thorax, 05/17: Shows no PE. Calcified hilar lymph nodes. Calcified left lower lobe granuloma. Chest x-ray, 05/17: No acute disease. Nuclear stress test: No scar or ischemia. Slightly decreased EF of 51%. DISCHARGE CONDITION: Stable. DIET: The patient was advised to abstain from alcohol, fatty foods, spicy foods , excessive amounts of chocolate. He was advised to wait 2 to 3 hours before lying down after he eats a meal. DISCHARGE MEDICATIONS: 1. Bupropion 150 mg p.o. b.i.d. 2. Famotidine 20 mg p.o. daily. 3. [place] 10 mg/325 mg tablet 1 to 2 tablets p.o. q.4 hours p.r.n. 4. Protonix 40 mg p.o. daily. DISCHARGE INSTRUCTIONS: The patient should follow up with his PCP in a week. He should consider followup testing of his LFTs and his hypertriglyceridemia as well as his hyperglycemia. The patient was advised to come back to the ER if he has any hematemesis or black stools or dizziness or lightheadedness. The patient should follow up with Dr. Wei in a week to consider repeat endoscopy. The patient is discharged without aspirin given history of bleeding ulcer in the past and negative stress test. The patient should also follow up of left lower lobe granuloma and hilar lymph nodes and consider followup monitoring of his ascending aorta, which is 3.9 cm in size. Job ID: [id number] [facility]
--- NOTE | 2019-05-21 07:25 | NM ---
NM Cardiac Stress W EF WF History: Chest pain Comparison: None. Findings: Stress and rest performed after the intravenous administration of 27 and 9.7 mCi technetium 99m sestamibi was symmetric, respectively. Adequate left ventricular uptake of radiotracer. No scar or ischemia. Calculated ejection fraction of 51%. Impression: No scar or ischemia. Slightly decreased ejection fraction of 51%.
== END 2019-05-19 11:10 | disposition home or self-care (01) | DRG 392 ==
LOC: ERS 19:44 → 2SW 05-18 00:54 → OBSVTOIN 05-18 00:54
PROVIDERS: ADMIT Internal Medicine; ATTEND Internal Medicine
DX: K29.70 Gastritis, unspecified, without bleeding (principal); K21.9 Gastro-esophageal reflux disease without esophagitis; K27.9 Peptic ulcer, site unspecified, unspecified as acute or chronic, without hemorrhage or perforation; F32.9 Major depressive disorder, single episode, unspecified; F17.200 Nicotine dependence, unspecified, uncomplicated; B19.20 Unspecified viral hepatitis C without hepatic coma; Z85.51 Personal history of malignant neoplasm of bladder
CPT/HCPCS: 36415; 36416; 71046; 71275; 78452; 80048; 80053; 80061; 82550; 84484; 85007; 85025; 85027; 90471; 90686; 90732; 93005; 93017; A9500; C9113; G0008; G0009; J1650; Q9967

== ENCOUNTER 2020-03-05 10:30 | Outpatient (CLI) | payer OTHER ==
--- NOTE | 2020-03-05 11:21 | CT ---
Exam: Abdomen CT with and without contrast Pelvic CT with and without contrast HISTORY: Bladder neoplasm. COMPARISON: 07/06/2017. TECHNIQUE: Abdomen and pelvic CT is performed with and without contrast following urogram protocol. C oronal reformatted images are submitted for interpretation. FINDINGS: Lung bases: Calcified granuloma in the left lower lobe, measuring 1.2 cm. Heart: Normal heart size. No significant pericardial effusion. Aorta: Normal caliber. No periaortic fat stranding. Liver: 0.8 cm hypodensity in segment 8 of the liver. Lesion is too small to characterize but is stati stically favored to be a cyst. No enhancing masses in the liver. Spleen: Appropriate enhancement. Pancreas: Appropriate enhancement. Adrenal glands: Symmetric enhancement. Lymph nodes: No gastrohepatic, retrocrural or periportal lymphadenopathy. Portal vein: Patent. Gallbladder: There is evidence of cholelithiasis. There is mild dilatation of the common bile duct an d central intrahepatic biliary system. Kidneys: Noncontrast: No evidence of nephrolithiasis or perinephric fat stranding. Contrast: Symmetric enhancement of the kidneys. No evidence of enhancing masses in either renal paren chyma. Delayed: Symmetric excretion into a decompressed intrarenal collecting system. No calyceal dilatation or filling defects. Contrast opacifies the majority of the left and right ureter. There is no evidence of ureteral dilatation or periureteral fat stranding. Mesentery: No mass, nephropathy, free air or free fluid. Alimentary canal: Limited evaluation due to lack of oral contrast administration. No evidence of damion l obstruction. The ileocecal junction is normal. Normal caliber appendix. Scattered fecal material in a nondistended/nondilated colon. CT PELVIS: Reproductive organs and pelvis: Prostate gland is grossly unremarkable. Urinary bladder: There is slight mucosal prominence of the anterior urinary bladder. Stable small div erticulum on the right aspect of the urinary bladder. There is a larger diverticulum along the posterior left aspect of the urinary bladder. Diverticulum is where the left ureter inserts. Previous ly noted hyperdensities in the diverticulum are not evident. No definite filling defects are appreciated on the postcontrast images. No lytic or blastic lesions in the osseous structures. IMPRESSION: 1. Redemonstration of two bladder diverticula. There is slight mucosal prominence involving the anter ior wall of the urinary bladder. Obvious filling defects are not appreciated. Cystoscopy if clinically warranted. 2. No evidence of obstructive uropathy. 3. Cholelithiasis without evidence of cholecystitis. However, there is mild dilatation of the common bile duct, measuring 0.9 cm. There is also mild central intrahepatic biliary dilatation. Nonemergent ERCP if clinically warranted. CODE T Transcribed Date/Time: 03/05/2020 11:33 AM
== END 2020-03-05 10:31 | disposition home or self-care (01) ==
LOC: BICCT 10:30
PROVIDERS: ATTEND Urology
DX: C67.9 Malignant neoplasm of bladder, unspecified (principal); N32.3 Diverticulum of bladder; K80.20 Calculus of gallbladder without cholecystitis without obstruction
CPT/HCPCS: 74178

== ENCOUNTER 2020-10-21 13:04 | Outpatient (CLI) | payer OTHER ==
[~2020-10-21 13:04] MED LIST changes: +Iopamidol 370 76% 100 ML VIAL ONE; -Iopamidol-370 76% 500 ML 1 ML ONE
== END 2020-10-21 13:05 | disposition home or self-care (01) ==
LOC: BICCT 13:04
PROVIDERS: ATTEND Urology
DX: C67.9 Malignant neoplasm of bladder, unspecified (principal); K80.20 Calculus of gallbladder without cholecystitis without obstruction; N32.3 Diverticulum of bladder
CPT/HCPCS: 74178; Q9967

== ENCOUNTER 2021-05-05 14:15 | Outpatient (CLI) | payer OTHER ==
[2021-05-05 15:24] LABS: Hemoglobin 15.1 g/dL (13.5-17.5); Mean Corpuscular HGB CONC 34.5 g/dL (32.0-36.0); Mean Corpuscular Hemoglobin 30.3 pg (27.0-33.0); Mean Corpuscular Volume 87.8 fl (81.2-95.1); Mean Platelet Volume 10.2 fl (7.4-10.4); Platelet Count 241 10x3/uL (150-450); RBC Distribution Width 13.2 % (11.5-14.5); Red Blood Cell (RBC) Count 4.99 10x6/uL (4.32-5.72); White Blood Cell (WBC) Count 9.2 10x3/uL (3.5-10.5)
[2021-05-05 15:40] LABS: PTT 28.4 sec (22.0-33.0); Prothrombin Time 10.9 sec (9.5-12.1)
[2021-05-05 15:45] LABS: Anion Gap 15 mmol/L (10-20); BUN (Urea Nitrogen) 8 mg/dL (8.4-25.7); Calc. Creatinine Clearance 0 mL/min (70-130); Calcium 9.2 mg/dL (7.8-10.44); Carbon Dioxide 24 mmol/L (22-29); Chloride 106 mmol/L (98-107); Glucose 185 mg/dL (70-105); Potassium 3.8 mmol/L (3.5-5.1); Sodium 141 mmol/L (136-145)
[2021-05-05 15:51] LABS: Bilirubin Neg (Negative); Blood, Urine Negative (Negative); Clarity Clear (Clear); Glucose, Urine (Dipstick) Normal (Negative); Ketone, Urine Negative (Negative); Leukocyte 25 (Negative); Nitrite Negative (Negative); Protein, Urine (Dipstick) Negative (Neg-Trace); pH, Urine 6.5 (5.0-9.0)
[2021-05-05 16:39] LABS: Bacteria/HPF None Seen HPF (None Seen); RBC/HPF None Seen HPF (0-3); Squamous Epithelial 0-3 HPF (0-3); WBC/HPF None Seen HPF (0-3)
[2021-05-06 07:35] LABS: SARS-CoV-2 PCR by NAA Not Detected (NotDetected)
== END 2021-05-05 14:16 | disposition home or self-care (01) ==
LOC: LABBT 14:15
PROVIDERS: ATTEND Urology
DX: Z01.818 Encounter for other preprocedural examination (principal); C67.9 Malignant neoplasm of bladder, unspecified; B19.20 Unspecified viral hepatitis C without hepatic coma; N32.3 Diverticulum of bladder; F10.10 Alcohol abuse, uncomplicated; F33.1 Major depressive disorder, recurrent, moderate; N52.01 Erectile dysfunction due to arterial insufficiency; Z72.0 Tobacco use; Z20.822 Contact with and (suspected) exposure to COVID-19
CPT/HCPCS: 80048; 81001; 85027; 85610; 85730; 87086; 93005; 93010; U0003; U0005

== ENCOUNTER 2021-05-06 06:51 | Day surgery (SDC) | payer OTHER ==
[2021-05-05 10:08] VITALS: BMI 25.8
[2021-05-06] MEDS ORDERED: B & O ONE (07:17)
[2021-05-06] MEDS ORDERED: Levofloxacin 500 mg/D5W 100 ml Premix Bag ONE (07:42)
[2021-05-06] MEDS ORDERED: Fentanyl 100 MCG/2 ML VIAL ONE (07:44)
[2021-05-06] MEDS ORDERED: Dexamethasone 20 MG/5 ML VIAL ONE (07:49)
[2021-05-06] MEDS ORDERED: Lidocaine 1% PF 5 ML VIAL ONE (07:49)
[2021-05-06] MEDS ORDERED: Ondansetron PF 4 MG/2 ML Vial ONE (07:49)
[2021-05-06] MEDS ORDERED: PROPOFOL 200 MG/20 ML VIAL ONE (07:49)
== END 2021-05-06 10:40 | disposition home or self-care (01) ==
LOC: SDC 06:51
PROVIDERS: ATTEND Urology
PROC: 0TBB8ZX Excision of Bladder, Via Natural or Artificial Opening Endoscopic, Diagnostic (ICD-10-PCS; principal; 2021-05-06)
DX: C67.9 Malignant neoplasm of bladder, unspecified (principal); B19.20 Unspecified viral hepatitis C without hepatic coma; F17.210 Nicotine dependence, cigarettes, uncomplicated; N32.3 Diverticulum of bladder; F10.10 Alcohol abuse, uncomplicated; F33.1 Major depressive disorder, recurrent, moderate; N52.01 Erectile dysfunction due to arterial insufficiency; Z86.15 Personal history of latent tuberculosis infection; Z79.899 Other long term (current) drug therapy; Z20.822 Contact with and (suspected) exposure to COVID-19
CPT/HCPCS: 80048; 81001; 85027; 85610; 85730; 87086; 88305; 93005; 93010; J1100; J1956; J2405; J2704; J3010; U0003; U0005

== ENCOUNTER 2021-09-30 09:10 | Outpatient (CLI) | payer OTHER | END 2021-09-30 09:11 | disposition home or self-care (01) | LOC: BICCT 09:10 | PROVIDERS: ATTEND Urology | DX: C67.9 Malignant neoplasm of bladder, unspecified (principal); N13.4 Hydroureter | CPT/HCPCS: 74178 ==

== ENCOUNTER 2021-10-21 11:11 | Outpatient (CLI) | payer OTHER ==
[~2021-10-21 11:11] MED LIST changes: +Furosemide 40 MG/4 ML VIAL ONE; -Iopamidol 370 76% 100 ML VIAL ONE
== END 2021-10-21 11:12 | disposition home or self-care (01) ==
LOC: NM 11:11
PROVIDERS: ATTEND Urology
DX: N13.30 Unspecified hydronephrosis (principal)
CPT/HCPCS: 78708; A4641; A9562; J1940

== ENCOUNTER 2022-01-10 11:43 | Outpatient (CLI) | payer OTHER ==
[2022-01-10 12:55] LABS: Bilirubin Neg (Negative); Blood, Urine Negative (Negative); Clarity Clear (Clear); Glucose, Urine (Dipstick) Normal (Negative); Ketone, Urine Negative (Negative); Leukocyte Negative (Negative); Nitrite Negative (Negative); Protein, Urine (Dipstick) Negative (Neg-Trace)
[2022-01-10 13:10] LABS: Mean Corpuscular Hemoglobin 31.5 pg (27.0-33.0); Mean Corpuscular Volume 89.9 fl (81.2-95.1); Mean Platelet Volume 11.1 fl (7.4-10.4); Platelet Count 257 10x3/uL (150-450); RBC Distribution Width 12.7 % (11.5-14.5); Red Blood Cell (RBC) Count 4.76 10x6/uL (4.32-5.72); White Blood Cell (WBC) Count 9.2 10x3/uL (3.5-10.5)
[2022-01-10 13:20] LABS: INR-International Normal Ratio 0.9; PTT 28.7 sec (22.0-33.0); Prothrombin Time 10.3 sec (9.5-12.1)
[2022-01-10 13:22] LABS: Anion Gap 15 mmol/L (10-20); BUN (Urea Nitrogen) 10 mg/dL (8.4-25.7); Calc. Creatinine Clearance 0 mL/min (70-130); Calcium 9.5 mg/dL (7.8-10.44); Carbon Dioxide 25 mmol/L (22-29); Chloride 106 mmol/L (98-107); Estimated GFR 98; Glucose 115 mg/dL (70-105); Potassium 4.5 mmol/L (3.5-5.1); Sodium 141 mmol/L (136-145)
[2022-01-10 13:48] LABS: Bacteria/HPF 2+ HPF (None Seen); RBC/HPF 0-3 HPF (0-3); Squamous Epithelial 0-3 HPF (0-3)
[2022-01-10 13:49] LABS: Mucous/LPF Rare LPF (<2+)
== END 2022-01-10 11:44 | disposition home or self-care (01) ==
LOC: LABBT 11:43
PROVIDERS: ATTEND Urology
DX: Z01.818 Encounter for other preprocedural examination (principal); C67.9 Malignant neoplasm of bladder, unspecified; B19.20 Unspecified viral hepatitis C without hepatic coma; Z72.0 Tobacco use; N32.3 Diverticulum of bladder; F10.10 Alcohol abuse, uncomplicated; F33.1 Major depressive disorder, recurrent, moderate; N52.01 Erectile dysfunction due to arterial insufficiency; N13.39 Other hydronephrosis; Z20.822 Contact with and (suspected) exposure to COVID-19
CPT/HCPCS: 80048; 81001; 85027; 85610; 85730; 87086; 87811; 93005; 93010

== ENCOUNTER 2022-01-13 06:45 | Day surgery (SDC) | payer OTHER ==
[2022-01-11 12:51] VITALS: BMI 25.8
[2022-01-13] MEDS ORDERED: mitoMYcin 40 MG in Sterile Water 20 ML I-VESIC SCH (07:15)
[2022-01-13] MEDS ORDERED: B & O ONE (08:28)
[2022-01-13] MEDS ORDERED: PROPOFOL 200 MG/20 ML VIAL ONE (08:30)
[2022-01-13] MEDS ORDERED: Rocuronium Bromide 10 MG/ML (10ML VIAL) ONE (08:30)
[2022-01-13] MEDS ORDERED: Glycopyrrolate 0.2 MG/ML 5 ML SYRINGE ONE (08:30)
[2022-01-13] MEDS ORDERED: Lidocaine 1% PF 5 ML VIAL ONE (08:30)
[2022-01-13] MEDS ORDERED: Fentanyl 100 MCG/2 ML VIAL ONE (08:32)
[2022-01-13] MEDS ORDERED: Levofloxacin 500 mg/D5W 100 ml Premix Bag ONE (08:34)
[2022-01-13] MEDS ORDERED: Dexmedetomidine 200 MCG/2 ML VIAL ONE (08:34)
[2022-01-13] MEDS ORDERED: SUGAMMADEX SODIUM 200 MG/2 ML VIAL ONE ×2 (09:10→09:31)
== END 2022-01-13 11:53 | disposition home or self-care (01) ==
LOC: SDC 06:45
PROVIDERS: ATTEND Urology
PROC: 0TBB8ZZ Excision of Bladder, Via Natural or Artificial Opening Endoscopic (ICD-10-PCS; principal; 2022-01-13)
DX: C67.3 Malignant neoplasm of anterior wall of bladder (principal); N32.3 Diverticulum of bladder; N52.01 Erectile dysfunction due to arterial insufficiency; F17.210 Nicotine dependence, cigarettes, uncomplicated; Z79.899 Other long term (current) drug therapy
CPT/HCPCS: 88305; J1956; J2704; J2710; J3010; J9280